=== PATIENT | male | born 2000 | race Hispanic/Latino ===

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

== ENCOUNTER 2022-01-07 09:47 | Emergency (ER) | payer MEDICAID ==
[~2022-01-07] VITALS: Ht 175.3 cm; Wt 61.2 kg
[2022-01-07 09:52] VITALS: BP 123/54
[2022-01-07] MEDS ORDERED: DEXAMETHASONE SOD PHOSPHATE 4 MG/ML 1ML VIAL ONE (10:20)
[2022-01-07] MEDS ORDERED: CLIN-141 PO (10:25)
[2022-01-07] MEDS ORDERED: PRED5TAB PO (10:25)
[2022-01-07] MEDS ORDERED: DEXAMETHASONE SOD PHOSPHATE 4 MG/ML 1ML VIAL IM SCH (10:30)
== END 2022-01-07 11:05 | disposition home or self-care (01) ==
LOC: EDH 09:47
DX: L03.114 Cellulitis of left upper limb (principal)
CPT/HCPCS: 96372; 99283; J1100

== ENCOUNTER 2022-08-12 17:09 | Emergency (ER) | payer MEDICAID ==
[~2022-08-12] VITALS: Ht 175.3 cm; Wt 59.0 kg
[~2022-08-12 17:09] MED LIST: CLIN-141 PO; PRED5TAB PO
[2022-08-12] MEDS ORDERED: IBUPROFEN 600 MG TABLET ONE (18:27)
[2022-08-12] MEDS ORDERED: IBUPROFEN 600 MG TABLET PO ONE (18:30)
[2022-08-12 18:54] LABS: BASOPHILS % (AUTO) 0.3 % (0.0-5.0); EOSINOPHILS % (AUTO) 0.3 % (0.0-8.0); LYMPHOCYTES % (AUTO) 13.4 % (21.0-51.0); MEAN CORPUSCULAR HEMOGLOBIN 28.9 pg (27.0-33.0); MEAN CORPUSCULAR HGB CONC 33.9 g/dL (32.0-36.0); MEAN CORPUSCULAR VOLUME 85.3 fL (80-100); MONOCYTES % (AUTO) 8.1 % (3.0-13.0); NEUTROPHILS % (AUTO) 77.6 % (40.0-77.0); PLATELET COUNT (AUTO) 222 K/uL (130-400); RED BLOOD CELL COUNT(AUTO) 5.16 MIL/uL (4.50-6.20); RED CELL DISTRIBUTION WIDTH 13.2 % (11.0-15.5); WHITE BLOOD COUNT (AUTO) 6.4 K/uL (4.8-10.8)
[2022-08-12 19:04] LABS: POTASSIUM 3.2 mmol/L (3.5-5.1)
[2022-08-12 19:09] LABS: ALBUMIN 4.2 g/dL (3.5-5.0); TOTAL PROTEIN, SERUM 7.5 g/dL (6.0-8.3)
[2022-08-12] MEDS ORDERED: IBUP-2070 PO (19:44)
[2022-08-12] MEDS ORDERED: POTASSIUM BICARB/CIT AC 25 MEQ TABLET.EFF PO ONE (20:00)
[2022-08-12 20:18] VITALS: BP 119/74
== END 2022-08-12 20:16 | disposition home or self-care (01) ==
LOC: EDH 17:09
DX: B34.9 Viral infection, unspecified (principal); Z20.822 Contact with and (suspected) exposure to COVID-19; Z79.1 Long term (current) use of non-steroidal anti-inflammatories (NSAID); Z79.52 Long term (current) use of systemic steroids; Z88.0 Allergy status to penicillin
CPT/HCPCS: 99283; 87635; 80053; 85025; 87880; 87804 ×2; 36415; C9803

== ENCOUNTER 2023-02-21 11:33 | Emergency (ER) | payer MEDICAID ==
[~2023-02-21] VITALS: Ht 175.3 cm; Wt 56.7 kg
[~2023-02-21 11:33] MED LIST changes: +IBUP-2070 PO
[2023-02-21] MEDS ORDERED: CLIN-141 PO (12:12)
[2023-02-21] MEDS ORDERED: MUPI22OI2 TP (12:12)
[2023-02-21] MEDS ORDERED: HYDR-3421 PO (12:12)
[2023-02-21] MEDS ORDERED: IBUP-2070 PO (12:12)
[2023-02-21] MEDS ORDERED: DIPHENHYDRAMINE HCL 25 MG CAPSULE PO ONE (12:30)
[2023-02-21] MEDS ORDERED: DEXAMETHASONE SOD PHOSPHATE 4 MG/ML 1ML VIAL IM ONE (12:30)
[2023-02-21 13:34] VITALS: BP 124/74
== END 2023-02-21 13:36 | disposition home or self-care (01) ==
LOC: EDH 11:33
DX: L03.114 Cellulitis of left upper limb (principal); Z88.0 Allergy status to penicillin
CPT/HCPCS: 99283; 96372; J1100; Q0163